=== PATIENT | male | born 1980 | race Hispanic/Latino ===

== ENCOUNTER 2024-06-02 07:10 | Day surgery (SDC) | payer BC ==
[~2024-06-02] VITALS: Ht 175.3 cm; Wt 103.4 kg
[2024-06-02] VITALS (10 sets, daily range): BP systolic 93–111; BP diastolic 54–67; PULSE 61–68; RESP 15–18; TEMP 97–97.8
[2024-06-02] MEDS: 0.9%NACL 1000ML 1,000 ML IV ONE (09:18)
[2024-06-02] MEDS ORDERED: proPOFol 10 MG/ML 20ML VIAL IV ONE (11:21)
== END 2024-06-02 12:29 | disposition home or self-care (01) ==
LOC: DAH 07:10 → ENDO 07:10
PROVIDERS: ATTEND Internal Medicine Gastroenterology
DX: R93.3 Abnormal findings on diagnostic imaging of other parts of digestive tract (principal); K29.50 Unspecified chronic gastritis without bleeding; K44.9 Diaphragmatic hernia without obstruction or gangrene; R19.4 Change in bowel habit; D12.6 Benign neoplasm of colon, unspecified; K64.0 First degree hemorrhoids; J44.9 Chronic obstructive pulmonary disease, unspecified; Z98.84 Bariatric surgery status; Z79.899 Other long term (current) drug therapy
CPT/HCPCS: 43239; J7030; J2704; A4620; A4215 ×2; A4223; A4222; A4221; A4663; A4606; J3490